=== PATIENT | female | born 1975 | race Caucasian/White ===

== ENCOUNTER 2025-02-20 17:33 | Emergency (ER) | payer MEDICAID ==
[~2025-02-20] VITALS: Ht 167.6 cm; Wt 79.0 kg
[2025-02-20 17:37] VITALS: O2SAT 99
[2025-02-20] MEDS: KETOROLAC 15MG/ML VIAL IM ONE (20:09)
[2025-02-20 20:18] LABS: BASOPHILS % 0.8 % (0.0-2.0); EOSINOPHILS % 1.6 % (0.0-5.0); HEMATOCRIT. 38.1 % (36.0-48.0); HEMOGLOBIN. 12.4 g/dL (12.0-16.0); LYMPHOCYTES % 32.6 % (20.0-50.0); MEAN PLATELET VOLUME 9.3 fl (7.4-10.4); MONOCYTES % 7.3 % (2.0-8.0); NEUTROPHILS % 57.7 % (40.0-76.0); PLATELET 247 x1000/uL (130-400); RED BLOOD CELL COUNT 4.35 mill/uL (4.2-5.4); RED CELL DISTRIBUTION WIDTH 14.8 % (11.6-14.6)
[2025-02-20 20:45] LABS: CREATININE 0.7 mg/dL (0.6-1.0)
[2025-02-20 20:46] LABS: PROTEIN TOTAL 6.7 g/dL (6.0-8.3)
[2025-02-20 20:47] LABS: ASPARTATE AMINOTRANSFERASE 22 IU/L (<34); BILIRUBIN DIRECT 0.1 mg/dL (<=3.0); BILIRUBIN TOTAL 0.5 mg/dL (0.1-1.0); TROPONIN I HIGH SENSITIVITY < 4 ng/L (3.0-34)
[2025-02-20 20:48] LABS: UREA NITROGEN BLOOD 8 mg/dL (9-23)
[2025-02-20] MEDS ORDERED: ONDA-239 PO (21:52)
[2025-02-20] MEDS ORDERED: IBUP-1455 MT (21:52)
[2025-02-20] MEDS ORDERED: AMOX1TAB16 MT (21:54)
[2025-02-20 22:15] VITALS: BP 136/73; PULSE 89; RESP 18; TEMP 36.9; O2SAT 98
== END 2025-02-20 22:16 | disposition home or self-care (01) ==
LOC: ER 17:33
DX: J32.9 Chronic sinusitis, unspecified (principal); J06.9 Acute upper respiratory infection, unspecified; R06.02 Shortness of breath; R51.9 Headache, unspecified; H57.13 Ocular pain, bilateral; Z90.49 Acquired absence of other specified parts of digestive tract
CPT/HCPCS: 99285; 71045; 80076; 80048; 81025; 85025; 84484; 36415; 93005; 96372; J1885